=== PATIENT | male | born 1975 | race Caucasian/White ===

== ENCOUNTER 2021-07-19 16:58 | Emergency (ER) | payer OTHER, SELFPAY ==
[2021-07-19 17:13] VITALS: BP 97/56; PULSE 57; RESP 15; TEMP 36.6; O2SAT 98
--- NOTE | 2021-07-19 17:29 | ED_ITS ---
HPI - Psych General Chief Complaint: General Medical Stated Complaint: protective custody Time Seen by Provider: 07/19/21 17:29 Source: patient and EMS Mode of arrival: EMS Limitations: no limitations History of Present Illness HPI Narrative: This is a male presenting by ambulance for protective custody. Patient tells me that police officers found paraphernalia in his car and they gave him the option to either come to the hospital or go home. Patient tells me that he chose to come to the hospital. He has no complaints he tells me his medical complaint at this time is that his bottom to this hurting however he tells me he will go see a dentist for it. He denies SI/HI. He tells me that he has been taking clonazepam which is not prescribed to him for anxiety. He denies any other drug use, denies alcohol use. Patient denies trauma, and tells me he wants to leave, and doesnt need to be here. Denies fevers, chills, cough, chest pain, shortness of breath, nausea, vomiting, abdominal pain, headache, vision changes, dizziness. MD complaint: anxiety Onset (ago): day(s) (1) Duration: constant History of same: Yes Relieving factors: other (Clonazepam) Exacerbating factors: none Associated psychiatric symptoms: none Associated symptoms: denies other symptoms Treatments prior to arrival: none Related Data Previous Rx's Medication Instructions Recorded amoxicillin 500 mg tablet 500 mg PO BID 7 Days #14 tab 07/19/21 naloxone 4 mg/actuation nasal spray 4 mg INTRANASAL Q2M PRN #2 ea 07/19/21 Allergies Allergy/AdvReac Type Severity Reaction Status Date / Time bee pollen [bee stings] Allergy Unknown Verified 07/19/21 17:31 Review of Systems Review of Systems: Constitutional : No Fever, No Chills ENT/Mouth : No sore throat, No Rhinorrhea, +tooth pain Eyes: No Eye Pain, No Swelling, No Redness Cardiovascular : No Chest Pain, No SOB Respiratory : No Cough, No Sputum Gastrointestinal : No Nausea, No Vomiting, No Diarrhea, No abdominal Pain Genitourinary : No Dysuria, No Hematuria Musculoskeletal : No joint pain, No Myalgias, No Joint Swelling Skin : No Skin Lesions, No rash Neuro : No Weakness, No Numbness Psych : No Anxiety, No Depression, No SI/HI/AH/VH All other systems reviewed and are negative Yes all other systems are reviewed and are negative [facility] Past Medical History Attestation statement: The following information was validated with the patient. Source: old records reviewed and nursing notes reviewed Social History Social History Advance Directives: No Advance Directives Information Provided: Yes Physical Exam Vital Signs: Vital Signs: Last Vital Signs Temp 97.8 F 07/19/21 17:13 Pulse 57 07/19/21 17:13 Resp 15 07/19/21 17:13 BP 97/56 L 07/19/21 17:13 Pulse Ox 98 07/19/21 17:13 BMI result Body Mass Index 23.7 VSS Appearance: Alert.? Oriented X3.? No acute distress.? Head: Normocephalic, atraumatic, no step-offs or deformities Eyes: Pupils equal, round and reactive to light.? ENT: Pharynx normal.?+ pain to palpation around first molar / second premolar on left lower side. Neck: Normal inspection.? Neck supple.? CVS: Normal heart rate and rhythm.? Pulses normal.? Respiratory: No respiratory distress.? Breath sounds normal.? Abdomen: Soft and nontender.? Skin: Skin warm and dry.? Normal skin color.? Normal skin turgor.? Extremities: No lower extremity edema.? No calf ttp. 5/5 strength to bilateral upper and lower extremities Neuro: Oriented X 3.? No motor deficit.? No sensory deficit. Course Reevaluation(s) Reevaluation #1: I will prescribe the patient amoxicillin for prophylactic coverage of oral dee. I have advised him to follow up with his dentist. At this time I feel comfortable discharge. Patient has no medical complaints at this time. Continues to refuse detox. Tells me he has a support system and he isnt using drugs. Patient's drug tox positive for opiates, fentanyl and marijuana. He continues to deny that he used any of the substances. Patient will be DC home. Time: 17:34 MDM - Psych MDM Narrative Medical decision making narrative: 1731 46-year-old male presents to the emergency department for protective custody, was pulled over, paraphernalia was found in his car and he was given the option to either go to retirement or come to the hospital, patient decided to come to the hospital. He reports the right lower premolar/for smaller pain (lower). No fevers chills, chest pain, shortness of breath, nausea, vomiting. Patient doesnt want detox. I offered it to him but he continues to tell me he hasnt used heroin or cocaine in a while. He doesnt want to speak to anyone about treatment, or the potential of starting methadone/suboxone. I informed him that heroin can kill him. I educated him on narcan and how to use it and I told how to use it. I made it clear that heroin can kill him. Physical examination with pain to palpation to the bottom right 2nd premolar and 1st molar. Vital signs stable. Regular rate and rhythm. Lungs clear. Neuro nonfocal. Plan at this time is to discharge patient home. Medical Records Attestation: I reviewed the patient's medical records. Lab Data Attestation: I reviewed the patient's lab results. Labs: Lab Results 07/19/21 Range/Units 17:54 Urine Opiates Screen POSITIVE H (Not Detect) Urine Fentanyl Screen POSITIVE H (Not Detect) Ur Barbiturates Screen Not Detected (Not Detect) Ur Phencyclidine Scrn Not Detected (Not Detect) Ur Amphetamines Screen Not Detected (Not Detect) U Benzodiazepines Scrn Not Detected (Not Detect) Urine Cocaine Screen Not Detected (Not Detect) U Marijuana (THC) Screen POSITIVE H (Not Detect) Critical Care Time Critical Care Time Critical Care Time: No Discharge Plan Discharge Clinical Impression: Tooth pain Patient Disposition: Home, Self-Care Instructions: Toothache (ED) Additional Instructions: Take your medications as prescribed. If you were prescribed antibiotics today, it is important that you take your medication to their entirety, do not skip any doses, do not finish them early. Follow-up with your primary care provider this week. Please follow-up with a dentist. Return to the emergency department with new or worsening symptoms. Return with new or worsening symptoms such as chest pain, shortness of breath, fevers, chills, nausea, vomiting, overlying skin changes, worsening tooth pain. You can take ibuprofen every 6 hours Tylenol every 4 as needed for pain. In case of emergency call 911 [facility]criptions sent to [facility]. You refused rehab. I have sent Narcan to your pharmacy [facility]. Prescriptions: New amoxicillin 500 mg tablet 500 mg PO BID 7 Days Qty: 14 RF: 0 naloxone 4 mg/actuation spray,non-aerosol 4 mg intranasal Q2M PRN (Reason: opioid overdose) Qty: 2 RF: 0 Referrals: Physician,Unknown J [Primary Care Provider] - 2 days
[2021-07-19 17:32] VITALS: BP 114/79; PULSE 90; O2SAT 99; BMI 23.7
[2021-07-19 18:11] LABS: Amphetamine Screen Urine Not Detected (Not Detect); Barbiturates, Urine Not Detected (Not Detect); Benzodiazepines Screen Urine Not Detected (Not Detect); Cannabinoid Screen Urine POSITIVE (Not Detect); Cocaine Screen Urine Not Detected (Not Detect); Fentanyl, urine POSITIVE (Not Detect); Opiate Screen Urine POSITIVE (Not Detect); Phencyclidine Screen Urine Not Detected (Not Detect)
[2021-07-19 18:20] VITALS: BP 94/42; PULSE 51; RESP 16; TEMP 36.7; O2SAT 96
[2021-07-19 18:27] VITALS: BP 97/57
== END 2021-07-19 18:30 | disposition home or self-care (01) ==
LOC: HO.ED 18:04
PROVIDERS: Physician Assistant; Emergency Provider Emergency Medicine Emergency Medical Services
DX: K08.89 Other specified disorders of teeth and supporting structures (principal); F41.9 Anxiety disorder, unspecified; F12.90 Cannabis use, unspecified, uncomplicated
CPT/HCPCS: 80307; 99283

== ENCOUNTER 2022-09-16 13:53 | Emergency (ER) | payer OTHER, SELFPAY | END 2022-09-16 15:48 | disposition left against medical advice (07) | LOC: HO.ED 15:45 | PROVIDERS: Emergency Provider Emergency Medicine | DX: H92.03 Otalgia, bilateral (principal) ==